=== PATIENT | female | born 2000 | race Caucasian/White ===

== ENCOUNTER 2023-07-05 16:38 | Emergency (ER) | payer OTHER, SELFPAY ==
[2023-07-05 16:41] VITALS: BP 133/84; PULSE 94; RESP 63; TEMP 39.5; O2SAT 97; BMI 29.5
[2023-07-05 16:58] LABS: Internal Control Within Normal Limits; Strep A Antigen Screen Negative
[2023-07-05] MEDS: IBUPROFEN 400 MG TABLET 800 MG PO (17:01)
[2023-07-05] MEDS: ACETAMINOPHEN 500 MG TABLET 1000 MG PO (17:01)
[2023-07-05 17:04] LABS: SARS-CoV-2 Ag NEGATIVE (NEGATIVE)
--- NOTE | 2023-07-05 17:15 | ED.URI1 ---
HPI - URI/Sore Throat General Chief Complaint: Upper Respiratory Infection Stated Complaint: FEVER, SORE THROAT Time Seen by Provider: 07/05/23 16:43 Source: patient History of Present Illness HPI Narrative: fever and sore throat since this morning. Uncertain about potential ill exposures. Took tylenol around 830am and nothing since. No vomiting or diarrhea. occasional cough. Achy Related Data Allergies Allergy/AdvReac Type Severity Reaction Status Date / Time No Known Drug Allergies Allergy Verified 07/05/23 16:41 PFSH PFSH Social History Smoking status: Current every day smoker Exam Narrative Exam Narrative: Nurses notes and vital signs reviewed and patient is not hypoxic. febrile - T 103.1F General: Well-appearing and in no apparent distress. Skin: Warm, dry, no pallor noted. No rash. Head: Normocephalic, atraumatic. Neck: Supple, non-tender. nno cervical lymphadenopathy. No meningismus Eye: Pupils are equal, round and EOMI. No scleral icterus. Ears, Nose, Mouth, and Throat: TM are clear, no nasal mucosal hypertrophy. Oral mucosa is moist, mild posterior oropharynx erythema, no exudate and uvula is mid-line Cardiovascular: Regular Rate and Rhythm without murmur, gallop or rub. Respiratory: No accessory muscle use or respiratory distress. Lungs are clear to auscultation, no wheezing, rales or rhonchi Musculoskeletal: normal ROM GI: Abdomen is soft, non-distended. Normal bowel sounds. No tenderness to palpation. No rebound, guarding, or rigidity noted. Neurological: A&O x4. No cranial nerve dysfunction observed. No truncal ataxia. Moves all extremities. Sensation intact. Psychiatric: Cooperative and interactive. Normal mood and affect. Constitutional Vital Signs, click to edit/add: Last Vital Signs Temp 103.1 F H 07/05/23 16:41 Pulse 94 H 07/05/23 16:41 Resp 63 H 07/05/23 16:41 BP 133/84 07/05/23 16:41 Pulse Ox 97 07/05/23 16:41 O2 Del Method Room Air 07/05/23 16:41 Course Vital Signs Vital signs: Vital Signs Temperature 103.1 F H 07/05/23 16:41 Pulse Rate 94 H 07/05/23 16:41 Respiratory Rate 63 H 09/02/23 16:41 Blood Pressure 133/84 07/05/23 16:41 Pulse Oximetry 97 07/05/23 16:41 Oxygen Delivery Method Room Air 07/05/23 16:41 Temperature 103.1 F H 07/05/23 16:41 Pulse Rate 94 H 07/05/23 16:41 Respiratory Rate 63 H 07/05/23 16:41 Blood Pressure 133/84 07/05/23 16:41 Pulse Oximetry 97 07/05/23 16:41 Oxygen Delivery Method Room Air 07/05/23 16:41 MDM - URI/Sore Throat MDM Narrative Medical decision making narrative: Covid and strep screen were negative. Strep screen with a platelet of the culture grows bacteria requiring antibiotics, they will be called in for the patient. it is very early in terms of onset of symptoms for the patient's test positive for occult blood. She may have this as we're seeing an increased incidence in the area. I told her to quarantine, wear a mask, take Tylenol and Motrin for any fever and achiness, encouraged her to increase her oral fluid intake and is trying to eat balanced nutrition. Patient advised to rest, stay at home, practice social distancing, take Motrin and Tylenol for pain and fever if not allergic, stay well hydrated with Gatorade or similar drinks if vomiting or eat as tolerated if not and take any meds as prescribed. Reviewed reasons to return including rapid increase in respiratory rate, shortness of breath, confusion, inability to keep down sips of swallowed liquids for more than 24 hours. Asked patient to encourage any ill contacts to stay home and practice similar advice. Lab Data Attestation: I reviewed the patient's lab results. Labs: Lab Results 07/05/23 Range/Units 16:44 SARS-CoV-2 (PCR) Negative (NEGATIVE) Streptococcus Screen Negative Discharge Plan Discharge Chief Complaint: Upper Respiratory Infection Clinical Impression: Upper respiratory infection, Pharyngitis, Acute febrile illness Patient Disposition: Home, Self-Care Time of Disposition Decision: 17:14 Instructions: Pharyngitis (ED), Fever in Adults (ED), Upper Respiratory Infection (ED) Stand Alone Forms: Portal Instructions Referrals: MARLIN MARISCAL [Primary Care Provider] - 1 week
[2023-07-06 14:10] LABS: SARS-CoV-2 NAA NOT DETECTED (NOT DETECTE)
== END 2023-07-05 17:21 | disposition home or self-care (01) ==
PROVIDERS: Emergency Provider Emergency Medicine; PCP Family Medicine
DX: J02.9 Acute pharyngitis, unspecified (principal); J06.9 Acute upper respiratory infection, unspecified; R50.9 Fever, unspecified; Z20.822 Contact with and (suspected) exposure to COVID-19; F17.210 Nicotine dependence, cigarettes, uncomplicated
CPT/HCPCS: 87070; 87635; 87811; 87880; 99283; U0003

== ENCOUNTER 2024-04-12 21:13 | Outpatient (REF) | payer SELFPAY ==
[2024-04-15 12:14] LABS: Age Gdln ACOG Testing Note (.); IGP, rfx Aptima HPV ASCU Note (.)
== END 2024-04-12 21:14 | disposition home or self-care (01) ==
LOC: LAB 21:13
PROVIDERS: PCP Family Medicine; Visit Provider Obstetrics & Gynecology
DX: Z01.419 Encounter for gynecological examination (general) (routine) without abnormal findings (principal)
CPT/HCPCS: 88175

== ENCOUNTER 2024-08-18 14:52 | Outpatient (OUT) | payer OTHER, SELFPAY ==
[2024-08-18 15:17] LABS: Basophils Percent Auto 0.6 % (0.2-2.0); Eosinophils Absolute Auto 0.1 10^3/uL (0.0-0.7); Eosinophils Percent Auto 1.2 % (0.9-7.0); Hematocrit 42.8 % (36.0-48.0); Hemoglobin 14.3 g/dL (12.0-16.0); Immature Granulocytes Abs Auto 0.01 10^3/uL (0.00-0.03); Immature Granulocytes Pct Auto 0.2 % (0.0-0.5); Lymphocytes Absolute Auto 2.4 10^3/uL (1.2-3.8); Mean Corpuscular HGB Conc 33.4 g/dL (29.9-35.2); Mean Corpuscular Hemoglobin 30.7 pg (26.7-34.0); Mean Corpuscular Volume 91.8 fL (81.0-99.0); Mean Platelet Volume 10.4 fL (9.5-13.5); Monocytes Absolute Auto 0.5 10^3/uL (0.3-0.8); Monocytes Percent Auto 7.8 % (1.7-12.0); Neutrophils Absolute Auto 3.5 10^3/uL (1.4-6.5); Neutrophils Percent Auto 54.2 % (43.0-75.0); Platelet Count 236 10^3/uL (150-450); Red Blood Count 4.66 10^6/uL (4.20-5.40); Red Cell Distribution Width 12.6 % (11.0-15.0); White Blood Count 6.5 10^3/uL (4.0-11.0)
[2024-08-18 15:38] LABS: Estimated Average Glucose 100 mg/dL; Glycohemoglobin A1C 5.1 % (4.5-6.2)
[2024-08-18 15:52] LABS: Thyroid Stimulating Hormone 1.253 uIU/mL (0.358-3.740)
[2024-08-18 15:54] LABS: HCG Quantitative <1 mIU/mL
[2024-08-18 16:05] LABS: Free T4 1.06 ng/dL (0.76-1.46)
[2024-08-20 04:08] LABS: FSH 5.3 mIU/mL (.); Luteinizing Hormone(LH) 9.3 mIU/mL (.)
[2024-08-26 00:07] LABS: DHEA, Serum 169 ng/dL (31-701)
== END 2024-08-18 14:53 | disposition home or self-care (01) ==
LOC: LAB 14:54
PROVIDERS: PCP Family Medicine; Visit Provider Obstetrics & Gynecology
DX: E28.2 Polycystic ovarian syndrome (principal); N92.6 Irregular menstruation, unspecified
CPT/HCPCS: 36415; 82626; 82627; 83001; 83002; 83036; 84439; 84443; 84702; 85025

== ENCOUNTER 2024-08-23 14:50 | Outpatient (OUT) | payer OTHER, SELFPAY ==
--- NOTE | 2024-08-23 14:54 | US_ITS ---
[address] [address] Patient Name: AMRIT ROTHMAN MRN: [id number] date: 2000 Sex: F Assigned Patient Location: [place] Current Patient Location: Accession/Order Number: [id number] Exam Date: 08/23/2024 15:00 Report Date: 08/24/2024 10:54 At the request of: CANDIDO CHADWICK Procedure: US pelvis w/ transvaginal EXAMINATION: US pelvis w/ transvaginal HISTORY: Polycystic Ovarian Syndrome E28.2 COMPARISON: No relevant comparison available. FINDINGS: Transabdominal and transvaginal images The uterus is normal in size, contour and echotexture measuring 8.6 x 3.2 x 5.4 cm per the uterus is anteverted. 3 mm area of anechoic echogenicity in the cervix likely nabothian cysts. Endometrium measures 7.8 mm, normal. Small amount of free fluid in the endometrial cavity The right ovary measures 5.6 x 2.8 x 3.5 cm. Normal color and Doppler flow. Multiple normal follicles The left ovary measures 4.0 x 2.5 x 2.6 cm. Normal color and Doppler flow. Multiple normal follicles No free fluid US/US pelvis w/ transvaginal IMPRESSION: Bilateral ovarian follicles, not meeting criteria for polycystic ovarian morphology Electronically authenticated by: NEHA HERRERA Date: 08/24/2024 10:54
--- OUTSIDE RECORDS SUMMARY | 2024-08-23 15:06 | XMS_ITS | CCD ---
Author Organization [facility]iniSyn[facility] Care Team Providers Care Drafter Electrical Name Role Phone DAVEY, DR ISAAC Primary Care Unavailable BERKLEY RODNEY Attending Unavailable BERKLEY RODNEY Admitting Unavailable BERKLEY RODNEY Consulting Unavailable DAVEY, DR ISAAC Primary Care Unavailable BERKLEY RODNEY Attending Unavailable BERKLEY RODNEY Admitting Unavailable BERKLEY RODNEY Consulting Unavailable DAVEY, DR ISAAC Primary Care Unavailable RENETTA CHILDS Admitting Unavailable RENETTA CHILDS Attending Unavailable LUZ MARIA, DR REY Consulting Unavailable DAVEY, DR ISAAC Primary Care Unavailable LUZ MARIA, DR REY Admitting Unavailable LUZ MARIA, DR REY Attending Unavailable DAVEY, DR ISAAC Primary Care Unavailable LUZ MARIA, DR REY Attending Unavailable LUZ MARIA, DR REY Admitting Unavailable LUZ MARIA, DR REY Consulting Unavailable LUZ MARIA, DR REY Attending Unavailable LUZ MARIA, DR REY Admitting Unavailable LUZ MARIA, DR REY Consulting Unavailable DAVEY, DR ISAAC Primary Care Unavailable LUZ MARIA, DR REY Attending Unavailable DAVEY, DR ISAAC Primary Care Unavailable LUZ MARIA, DR REY Admitting Unavailable LUZ MARIA, DR REY Consulting Unavailable LUZ MARIA, DR REY Attending Unavailable DAVEY, DR ISAAC Primary Care Unavailable LUZ MARIA, DR REY Admitting Unavailable LUZ MARIA, DR REY Consulting Unavailable ZIEBER, DR JORGE Burton Consulting Unavailable LUZ MARIA, DR REY Attending Unavailable DAVEY, DR ISAAC Primary Care Unavailable LUZ MARIA, DR REY Admitting Unavailable JAVIER, DR SOLOMON Consulting Unavailable LUZ MARIA, DR REY Consulting Unavailable LUZ MARIA, DR REY Attending Unavailable DAVEY, DR ISAAC Primary Care Unavailable LUZ MARIA, DR REY Admitting Unavailable LUZ MARIA, DR REY Consulting Unavailable JORGE SINGLETON Consulting Unavailable LUZ MARIA, DR REY Procedure Practitioner Unavailab suki AGUILAR, DR MARTÍNEZ Attending Unavailable JEFF, DR MARTÍNEZ Admitting Unavailable DR JUANPABLO MARISCAL Primary Care Unavailable JEFF, DR MARTÍNEZ Consulting Unavailable Hanane Britt Unavailable Juanpablo Mariscal MD Primary Care Provider CANDIDO LOERA Attending Unavailable CANDIDO LOERA Attending Unavailable Medications Current Medications Medication Drug Class(es) Dates Sig (Normalized) Sig (Original) amoxicillin 500 mg oral capsule (1 source) Penicillin-class Antibacterial Start: 11-23-2022 take 1 capsule by mouth every eight hours Amoxicillin 500 MG 1 capsule Orally three times a day for 10 day(s) Nov, Active dextromethorphan hydrobromide 15 mg / guaiFENesin 400 mg / pseudoephedrine hydrochloride 60 mg oral tablet (1 source) alpha-Adrenergic Agonist, Uncompetitive X-yjptvw-O-aspartat e Receptor Antagonist, Sigma-1 Agonist Start: 02-10-2024 take 4 tablets by mouth every twenty-four hours Pseudoephedrine- Dm-Guaifenesin (Capmist Dm) 60-15-400 mg tablet Active 1 TAB PO EVERY 4-6 HOURS February 10, 2024 12:00am do not exceed 4 doses per 24 hrs oseltamivir 75 mg oral capsule (1 source) Neuraminidase Inhibitor Start: 02-10-2024 take 1 capsule by mouth twice daily Oseltamivir (Tamiflu) 75 mg capsule Active 75 MG PO Twice daily 10 February 10, 2024 12:00am predniSONE 20 mg oral tablet (1 source) Start: 11-23-2022 take 1 tablet by mouth every twelve hours predniSONE 20 MG 1 tablet Orally 2 times a day for 5 day(s) Nov, Active Problems Active Problems Problem Classification Problem Date Documented Da te Episodic/Chronic E Codes: Natural/environment (1 source) Bitten by cat, initial encounter; Translations: [BITTEN BY CAT INITIAL ENCOUNTER] Onset: 08-06-2022 Episodic Menstrual disorders (2 sources) Irregular periods; Translations: [Irregular menstruation, unspecified] 08-18-2024 Chronic Open wounds of extremities (4 sources) Open bite of right forearm, initial encounter; Translations: [OPEN BITE RIGHT FOREARM INITIAL ENC] Onset: 07-26-2022 Episodic Other endocrine disorders (2 sources) Polycystic ovary syndrome; Translations: [Polycystic ovarian syndrome] 08-18-2024 Chronic Other upper respiratory infections (3 sources) Sore throat symptom; Translations: [Acute pharyngitis, unspecified] Episodic Skin and subcutaneous tissue infections (1 source) Cellulitis of right upper limb; Translations: [CELLULITIS OF RIGHT UPPER LIMB] Onset: 08-06-2022 Episodic Unclassified (1 source) CONTACT W/AND (SUSP) EXPOS COVID-19; Translations: [CONTACT W/AND (SUSP) EXPOS COVID-19] Onset: 12-25-2021 Past or Other Problems Problem Classification Problem Date Documented Da te Episodic/Chronic Abdominal pain (4 sources) Pelvic and perineal pain; Translations: [PELVIC AND PERINEAL PAIN] Onset: 02-28-2022 Episodic Cardiac dysrhythmias (4 sources) Tachycardia, unspecified; Translations: [TACHYCARDIA UNSPECIFIED] Onset: 11-15-2021 Episodic Diabetes mellitus without complication (4 sources) Other abnormal glucose; Translations: [OTHER ABNORMAL GLUCOSE] Onset: 09-14-2021 Episodic OB-related trauma to perineum and vulva (1 source) Second degree perineal laceration during delivery; Translations: [SECOND DEG PERINEAL LAC DUR DELIV] Onset: 12-25-2021 Episodic Other complications of (4 sources) Other specified related conditions, third trimester; Translations: [OTH SPEC PREG RELATED COND 3RD TRI] Onset: 12-12-2021 Episodic Other and delivery including normal (11 sources) Encounter for routine follow-up; Translations: [Encounter for supervision of normal , unspecified, third trimester] Onset: 11-27-2021 Episodic Other screening for suspected conditions (not mental disorders or infectious disease) (8 sources) Encounter for screening for diabetes mellitus; Translations: [Encounter for other specified screening] Onset: 08-08-2021 Episodic Residual codes; unclassified (1 source) 39 weeks gestation of ; Translations: [39 WEEKS GESTATION OF ] Onset: 12-25-2021 Episodic Residual codes; unclassified (1 source) 38 weeks gestation of ; Translations: [38 WEEKS GESTATION OF ] Onset: 12-17-2021 Episodic Spondylosis; intervertebral disc disorders; other back problems (1 source) Dorsalgia, unspecified; Translations: [DORSALGIA UNSPECIFIED] Onset: 12-17-2021 Episodic Results Test Name Value Interpretation Reference Range Facility ALL CBC WITH AUTO DIFFon BASOPHILS ABSOLUTE AUTO 0 [facility] Basophils/100 WBC (Bld) 0.6 % 0.2 - 2.0 % [facility] Eosinophils/100 WBC (Bld) 1.2 % 0.9 - 7.0 % [facility] Eryth[facility] distribution width (RBC) [Ratio] 12.6 % 11.0 - 15.0 % [facility] Hematocrit (Bld) [Volume fraction] 42.8 % 36.0 - 48.0 % [facility] Hemoglobin (Bld) [Mass/Vol] 14.3 g/dL 12.0 - 16.0 g/dL [facility] IMMATURE GRANULOCYTES ABS AUTO 0.01 [facility] Immature granulocytes/100 WBC (Bld) 0.2 % 0.0 - 0.5 % [facility] LYMPHOCYTES ABSOLUTE AUTO 2.4 [facility] Lymphocytes/100 WBC (Bld) 36 % 20.5 - 60.0 % [facility] MCH (RBC) [Entitic mass] 30.7 pg 26.7 - 34.0 pg [facility] MCHC (RBC) [Mass/Vol] 33.4 g/dL 29.9 - 35.2 g/dL [facility] MCV (RBC) [Entitic vol] 91.8 fL 81.0 - 99.0 fL [facility] MONOCYTES ABSOLUTE AUTO 0.5 [facility] Monocytes/100 WBC (Bld) 7.8 % 1.7 - 12.0 % [facility] NEUTROPHILS ABSOLUTE AUTO 3.5 [facility] Neutrophils/100 WBC (Bld) 54.2 % 43.0 - 75.0 % [facility] Platelet mean volume (Bld) [Entitic vol] 10.4 fL 9.5 - 13.5 fL [facility] EO # 0.1 [facility] PLT 236 [facility] RBC 4.66 [facility] WBC 6.5 [facility] No Panel InformationOrdered By: Kayla Bustillos on 02-10-2024 Quick Strep (POC) [facility] Quick Strepon 11-23-2022 S. pyogenes Org specific cx Ql (Throat) Positive [facility] [employer] Other [employer] Other US PELVIS TRANSVAGon 022 US PELVIS TRANSVAG EXAMINATION: US PELVIS TRANSVAG HISTORY: Pelvic and perineal pain , IUD insertion COMPARISON: No relevant comparison available. TECHNIQUE: Transabdominal and transvaginal sonographic examination. FINDINGS: UTERUS: Normal size and appearance. Uterus size: 8.0 x 3.6 x 6.1 cm ENDOMETRIUM: IUD within the lower uterine segment with distal tip adjacent or possibly slightly into the posterior wall. Normal thickness and echogenicity of the endometrium. Endometrial thickness: 5 mm RIGHT OVARY: Normal size and appearance. Duplex Doppler demonstrates normal waveform and flow; resistive index 0.5. Ovary size: 3.3 x 1.8 x 4.0 cm LEFT OVARY: Normal size and appearance. Duplex Doppler demonstrates normal waveform and flow; resistive index 0.7. Ovary size: 4.2 x 1.7 x 2.4 cm CUL-DE-SAC: Unremarkable. No significant free fluid. BLADDER: Unremarkable. OTHER: None. IMPRESSION: 1. IUD within lower uterine segment with distal tip possibly deep to endometrium. Dr. Loera was notified of findings by the rotor blade installer at time of imaging. IUD has been removed. Electronically authenticated by: JORGE ARIZA Date: 2022-02-28 12:57 Normal [facility] CBC AUTO DIFFon 12-21-2021 BASO # 0.0 103/ul Normal 0.0-0.1 [facility] Comment on above: Performed By: #### T NS #### [facility] [address] [place] [address] Dr. Jose Man Basophils/100 WBC (Bld) 0.1 % Critically low 0.2-2.0 [facility] Comment on above: Performed By: #### T NS #### [facility] [address] [place] [address] Dr. Jose Man EO # 0.0 103/ul Normal 0.0-0.7 [facility] Comment on above: Performed By: #### T NS #### [facility] [address] [place] [address] Dr. Jose Man Eosinophils/100 WBC (Bld) 0.2 % Critically low 0.9-7.0 [facility] Comment on above: Performed By: #### T NS #### [facility] [address] [place] [address] Dr. Jose Man Erythrocyte distribution width (RBC) [Ratio] 13.2 % Normal 11.0-15.0 [facility] Comment on above: Performed By: #### T NS #### [facility] [address] [place] [address] Dr. Jose Man Hematocrit (Bld) [Volume fraction] 35.5 % Critically low 36.0-48.0 [facility] Comment on above: Performed By: #### T NS #### [facility] [address] [place] [address] Dr. Jose Man Hemoglobin (Bld) [Mass/Vol] 11.9 g/dL Critically low 12.0-16.0 [facility] Comment on above: Performed By: #### T NS #### [facility] [address] [place] [address] Dr. Jose Man IG # 0.06 10e3/ul Critically high 0.00-0.03 [facility] Comment on above: Performed By: #### T NS #### [facility] [address] [place] [address] Dr. Jose Man IG % 0.5 % Normal 0.0-0.5 [facility] Comment on above: Performed By: #### T NS #### [facility] [address] [place] [address] Dr. Jose Man LYMPH # 1.9 103/ul Normal 1.2-3.8 [facility] Comment on above: Performed By: #### T NS #### [facility] [address] [place] [address] Dr. Jose Man Lymphocytes/100 WBC (Bld) 15.4 % Critically low 20.5-60.0 [facility] Comment on above: Performed By: #### T NS #### [facility] [address] [place] [address] Dr. Jose Man MANUAL DIFF REQ NO Normal [facility] Comment on above: Performed By: #### T NS #### [facility] [address] [place] [address] Dr. Jose Man MCH (RBC) [Entitic mass] 30.7 pg Normal 26.7-34.0 [facility] Comment on above: Performed By: #### T NS #### [facility] [address] [place] [address] Dr. Jose Man MCHC (RBC) [Mass/Vol] 33.5 g/dL Normal 29.9-35.2 [facility] Comment on above: Performed By: #### T NS #### [facility] [address] [place] [address] Dr. Jose Man MCV (RBC) [Entitic vol] 91.7 fL Normal 81.0-99.0 [facility] Comment on above: Performed By: #### T NS #### [facility] [address] [place] [address] Dr. Jose Man MONO # 1.1 103/ul Critically high 0.3-0.8 [facility] Comment on above: Performed By: #### T NS #### [facility] [address] [place] [address] Dr. Jose Man Monocytes/100 WBC (Bld) 8.5 % Normal 1.7-12.0 [facility] Comment on above: Performed By: #### T NS #### [facility] [address] [place] [address] Dr. Jose Man NEUT # 9.3 103/ul Critically high 1.4-6.5 [facility] Comment on above: Performed By: #### T NS #### [facility] [address] [place] [address] Dr. Jose Man Neutrophils/100 WBC (Bld) 75.3 % Critically high 43.0-75.0 [facility] Comment on above: Performed By: #### T NS #### [facility] [address] [place] [address] Dr. Jose Man Platelet mean volume (Bld) [Entitic vol] 11.0 fL Normal 9.5-13.5 [facility] Comment on above: Performed By: #### T NS #### [facility] [address] [place] [address] Dr. Jose Man PLT 182 103/ul Normal 150-450 [facility] Comment on above: Performed By: #### T NS #### [facility] [address] [place] [address] Dr. Jose Man RBC 3.87 106/ul Critically low 4.20-5.40 [facility] Comment on above: Performed By: #### T NS #### [facility] [address] [address] [address] Jose Man WBC 12.3 103/ul Critically high 4.0-11.0 [facility] Comment on above: Performed By: #### T NS #### [facility] [address] [place] [address] Dr. Jose Man ASYMPTOMATIC COVID-19 ANTIGE Non 12-19-2021 EUA Statement SEE BELOW Normal [facility] Comment on above: Result Comment: This test has not been FDA cleared or approved, but has been authorized by the FDA under an Emergency Use Authorization (EUA) for use by authorized laboratories certified under CLIA that meet the requirements to perform moderate or high complexity testing. This test has been authorized only for the detection of proteins from SARS-CoV-2, not for any other viruses or pathogens. The emergency use of this test is authorized for the duration of the declaration that circumstances exist justifying the authorization of emergency use of in vitro diagnostic tests for detection and/or diagnosis of Covid-19 under section 564(b)(1) of the Act, 21 U.S.C. 360bbb-3(b)(1), unless the declaration is terminated or authorization is revoked sooner. Performed By: #### C VDAGA #### [facility] [address] [place] [address] Dr. Jose Man SARS-CoV-2 (COVID-19) RNA MELISSA+probe Ql (Unsp spec) Negative Normal NEGATIVE [facility] Comment on above: Result Comment: Nega tive results are presumptive. They do not preclude infection and should not be used as the sole basis for treatment decisions. Additional confirmatory testing by a molecular method should be considered. Performed By: #### C VDAGA #### [facility] [address] [place] [address] Dr. Jose Man CBC AUTO DIFFon 12-19-2021 BASO # 0.0 103/ul Normal 0.0-0.1 [facility] Comment on above: Performed By: #### T NS #### [facility] [address] [place] [address] Dr. Jose Man Basophils/100 WBC (Bld) 0.2 % Normal 0.2-2.0 [facility] Comment on above: Performed By: #### T NS #### [facility] [address] [place] [address] Dr. Jose Man EO # 0.0 103/ul Normal 0.0-0.7 [facility] Comment on above: Performed By: #### T NS #### [facility] [address] [place] [address] Dr. Jose Man Eosinophils/100 WBC (Bld) 0.3 % Critically low 0.9-7.0 [facility] Comment on above: Performed By: #### T NS #### [facility] [address] [place] [address] Dr. Jose Man Erythrocyte distribution width (RBC) [Ratio] 12.9 % Normal 11.0-15.0 [facility] Comment on above: Performed By: #### T NS #### [facility] [address] [place] [address] Dr. Jose Man Hematocrit (Bld) [Volume fraction] 39.1 % Normal 36.0-48.0 [facility] Comment on above: Performed By: #### T NS #### [facility] [address] [place] [address] Dr. Jose Man Hemoglobin (Bld) [Mass/Vol] 13.2 g/dL Normal 12.0-16.0 [facility] Comment on above: Performed By: #### T NS #### [facility] [address] [address] [address] Jose Man IG # 0.04 10e3/ul Critically high 0.00-0.03 [facility] Comment on above: Performed By: #### T NS #### [facility] [address] [address] [address] Jose Man IG % 0.4 % Normal 0.0-0.5 [facility] Comment on above: Performed By: #### T NS #### [facility] [address] [place] [address] Dr. Jose Man LYMPH # 1.6 103/ul Normal 1.2-3.8 [facility] Comment on above: Performed By: #### T NS #### [facility] [address] [place] [address] Dr. Jose Man Lymphocytes/100 WBC (Bld) 16.7 % Critically low 20.5-60.0 [facility] Comment on above: Performed By: #### T NS #### [facility] [address] [place] [address] Dr. Jose Man MANUAL DIFF REQ NO Normal [facility] Comment on above: Performed By: #### T NS #### [facility] [address] [place] [address] Dr. Jose Man MCH (RBC) [Entitic mass] 30.3 pg Normal 26.7-34.0 [facility] Comment on above: Performed By: #### T NS #### [facility] [address] [place] [address] Dr. Jose Man MCHC (RBC) [Mass/Vol] 33.8 g/dL Normal 29.9-35.2 [facility] Comment on above: Performed By: #### T NS #### [facility] [address] [place] [address] Dr. Jose Man MCV (RBC) [Entitic vol] 89.7 fL Normal 81.0-99.0 [facility] Comment on above: Performed By: #### T NS #### [facility] [address] [place], [place] [id number] Dr. Jose Man MONO # 0.9 103/ul Critically high 0.3-0.8 [facility] Comment on above: Performed By: #### T NS #### [facility] [address] [place] [address] Dr. Jose Man Monocytes/100 WBC (Bld) 8.7 % Normal 1.7-12.0 [facility] Comment on above: Performed By: #### T NS #### [facility] [address] [place] [address] Dr. Jose Man NEUT # 7.2 103/ul Critically high 1.4-6.5 [facility] Comment on above: Performed By: #### T NS #### [facility] [address] [place] [address] Dr. Jose Man Neutrophils/100 WBC (Bld) 73.7 % Normal 43.0-75.0 [facility] Comment on above: Performed By: #### T NS #### [facility] [address] [place] [address] Dr. Jose Man Platelet mean volume (Bld) [Entitic vol] 11.8 fL Normal 9.5-13.5 [facility] Comment on above: Performed By: #### T NS #### [facility] [address] [place] [address] Dr. Jose Man PLT 215 103/ul Normal 150-450 [facility] Comment on above: Performed By: #### T NS #### [facility] [address] [place] [address] Dr. Jose Man RBC 4.36 106/ul Normal 4.20-5.40 [facility] Comment on above: Performed By: #### T NS #### [facility] [address] [place] [address] Dr. Jose Man WBC 9.8 103/ul Normal 4.0-11.0 [facility] Comment on above: Performed By: #### T NS #### [facility] [address] [place] [address] Dr. Jose Man DRUG SCREEN RAPID (URINE)on 12-19-2021 AMP Negative Normal NEGATIVE [facility] Comment on above: Performed By: #### D RUGRPD #### [facility] [address] [place] [address] Dr. Jose Man BAR Negative Normal NEGATIVE [facility] Comment on above: Performed By: #### D RUGRPD #### [facility] [address] [place] [address] Dr. Jose Man BUP Negative Normal NEGATIVE [facility] Comment on above: Performed By: #### D RUGRPD #### [facility] [address] [place] [address] Dr. Jose Man BZO Negative Normal NEGATIVE [facility] Comment on above: Performed By: #### D RUGRPD #### [facility] [address] [place] [address] Dr. Jose Man TANYA Negative Normal NEGATIVE [facility] Comment on above: Performed By: #### D RUGRPD #### [facility] [address] [place] [address] Dr. Jose Man CUT-OFFS SEE BELOW Normal [facility] Comment on above: Result Comment: AMP (Amphetamine): 500ng/mL, BAR (Barbituates): 200 ng/mL, BZO (Benzodiazepines): 150 ng/mL, BUP (Buprenorphine): 10 ng/mL, TANYA (Cocaine): 150 ng/mL, mAMP (Methamphetamine): 500 ng/mL, MTD (Methadone): 200 ng/mL, OPI (Opiates): 100 ng/mL, OXY (Oxycodone): 100 ng/mL, PCP (Phencyclidine): 25 ng/mL, PPX (Propoxyphene): 300 ng/mL, THC (Cannabinoids): 50 ng/mL, TCA (Trycyclic Antidepressants): 300 ng/mL Performed By: #### D RUGRPD #### [facility] [address] [place] [address] Dr. Jose Man DRUG CUT HEADER DRUG CLASS TEST SYSTEM CUT-OFF CONCENTRATIONS ARE FOLLOWS: Normal [facility] Comment on above: Performed By: #### D RUGRPD #### [facility] [address] [place] [address] Dr. Jose Man mAMP Negative Normal NEGATIVE [facility] Comment on above: Performed By: #### D RUGRPD #### [facility] Laboratory [address] [address] [address] Jose Man MTD Negative Normal NEGATIVE [facility] Comment on above: Performed By: #### D RUGRPD #### [facility] Laboratory [address] [place] [address] Dr. Jose Man OPI Negative Normal NEGATIVE [facility] Comment on above: Performed By: #### D RUGRPD #### [facility] Laboratory [address] [place] [address] Dr. Jose Man OXY Negative Normal NEGATIVE [facility] Comment on above: Performed By: #### D RUGRPD #### [facility] Laboratory [address] [place] [address] Dr. Jose Man PCP Negative Normal NEGATIVE [facility] Comment on above: Performed By: #### D RUGRPD #### [facility] Laboratory [address] [place] [address] Dr. Jose Man PPX Negative Normal NEGATIVE [facility] Comment on above: Performed By: #### D RUGRPD #### [facility] Laboratory [address] [place] [address] Dr. Jose Man TCA Negative Normal NEGATIVE [facility] Comment on above: Performed By: #### D RUGRPD #### [facility] Laboratory [address] [place] [address] Dr. Jose Man THC Negative Normal NEGATIVE [facility] Comment on above: Performed By: #### D RUGRPD #### [facility] Laboratory [address] [place] [address] Dr. Jose Man TYPE AND SCREENon 12-19-2021 TYPE AND SCREEN Negative Normal [facility] Comment on above: Performed By: #### T NS #### [facility] Laboratory [address] [place] [address] Dr. Jose Man UA (CLEAN/CATCH) PEDIATRIC PSYCHOLOGIST/MICRO I F IND.on 12-12-2021 Bilirubin Ql (U) Negative Normal NEGATIVE [facility] Comment on above: Performed By: #### U MICRO, UACSIND #### [facility] Laboratory [address] [address] [address] Jose Man Clarity (U) CLEAR Normal CLEAR [facility] Comment on above: Performed By: #### U MICRO, UACSIND #### [facility] Laboratory [address] [address] [address] Jose Man Color (U) LT. YELLOW Normal YELLOW [facility] Comment on above: Performed By: #### U MICRO, UACSIND #### [facility] Laboratory [address] [address] [address] Jose Man Glucose Ql (U) Negative Normal NEGATIVE [facility] Comment on above: Performed By: #### U MICRO, UACSIND #### [facility] Laboratory [address] [place] [address] Dr. Jose Man Hemoglobin Ql (U) TRACE-LYSED Abnormal NEGATIVE [facility] Comment on above: Performed By: #### U MICRO, UACSIND #### [facility] Laboratory [address] [place] [address] Dr. Jose Man Ketones Ql (U) Negative Normal NEGATIVE [facility] Comment on above: Performed By: #### U MICRO, UACSIND #### [facility] Laboratory [address] [place] [address] Dr. Jose Man LEUKOCYTES Negative Normal NEGATIVE [facility] Comment on above: Performed By: #### U MICRO, UACSIND #### [facility] Laboratory [address] [address] [address] Jose Man Nitrite Ql (U) Negative Normal NEGATIVE [facility] Comment on above: Performed By: #### U MICRO, UACSIND #### [facility] Laboratory [address] [place] [address] Dr. Jose Man pH (U) 6.0 [pH] Normal 5-9 [facility] Comment on above: Performed By: #### U MICRO, UACSIND #### [facility] Laboratory [address] [place] [address] Dr. Jose Man SPEC GRAVITY 1.010 Normal 1.005-<=1.025 [facility] Comment on above: Performed By: #### U MICRO, UACSIND #### [facility] Laboratory [address] [place] [address] Dr. Jose Man UA PROTEIN Negative Normal NEGATIVE/ TRACE [facility] Comment on above: Performed By: #### U MICRO, UACSIND #### [facility] Laboratory [address] [place] [address] Dr. Jose Man UR MICRO IND INDICATED Normal [facility] Comment on above: Performed By: #### U MICRO, UACSIND #### [facility] Laboratory [address] [place] [address] Dr. Jose Man Urobilinogen Qn (U) 1.0 {Florentin'U}/dL Normal 0.2 - 1. 0 [facility] Comment on above: Performed By: #### U MICRO, UACSIND #### [facility] Laboratory [address] [place] [address] Dr. Jose Man URINE MICROSCOPIC ONLYon BACTERIA NONE SEEN Normal NONE SEEN [facility] Comment on above: Performed By: #### U MICRO, UACSIND #### [facility] Laboratory [address] [place] [address] Dr. Jose Man Bacteria identified Cx Nom (U) NOT INDICATED Normal [facility] Comment on above: Performed By: #### U MICRO, UACSIND #### [facility] Laboratory [address] [place] [address] Dr. Jose Man CAST NONE SEEN Normal NONE SEEN [facility] Comment on above: Performed By: #### U MICRO, UACSIND #### [facility] Laboratory [address] [place] [address] Dr. Jose Man Crystals LM Nom (Urine sed) NONE SEEN Normal NONE SEEN [facility] Comment on above: Performed By: #### U MICRO, UACSIND #### [facility] Laboratory [address] [place] [address] Dr. Jose Man Epithelial cells LM Ql (Urine sed) FEW Abnormal NONE SEEN /RARE [facility] Comment on above: Performed By: #### U MICRO, UACSIND #### [facility] Laboratory [address] [address] [address] Jose Man MUCOUS NONE SEEN Normal NONE SEEN [facility] Comment on above: Performed By: #### U MICRO, UACSIND #### [facility] Laboratory [address] [address] [address] Jose Man RBC 0-2 Normal 0-2 [facility] Comment on above: Performed By: #### U MICRO, UACSIND #### [facility] Laboratory [address] [address] [address] Jose Man WBC NONE SEEN Normal NONE SEEN [facility] Comment on above: Performed By: #### U MICRO, UACSIND #### [facility] Laboratory [address] [place] [address] Dr. Jose Man GROUP B STREP CULTUREon 11-04 S. agalactiae Ag Ql (Unsp spec) Culture Observations: NEGATIVE FOR GROUP B STREPTOCOCCUS. Normal [facility] Comment on above: Performed By: #### G BSCX #### [facility] Laboratory [address] [place] [address] Dr. Jose Man GTT 3 HR PREGon 09-14-2021 Glucose [Mass/Vol] 80 mg/dL Normal 74-106 [facility] Comment on above: Performed By: #### G TT3P #### [facility] Laboratory [address] [place] [address] Dr. Jose Man Glucose [Mass/Vol] 163 mg/dL Normal [facility] Comment on above: Performed By: #### G TT3P #### [facility] Laboratory [address] [place] [address] Dr. Jose Man Glucose [Mass/Vol] 133 mg/dL Normal [facility] Comment on above: Performed By: #### G TT3P #### [facility] Laboratory [address] [place] [address] Dr. Jose Man Glucose [Mass/Vol] 84 mg/dL Normal [facility] Comment on above: Performed By: #### G TT3P #### [facility] Laboratory [address] [place] [address] Dr. Jose Mna GLUCOSE - 1HRon 09-07-2021 Glucose [Mass/Vol] 150 mg/dL Critically high 74-106 [facility] Comment on above: Performed By: #### G LU1HR #### [facility] Laboratory [address] [address] [address] Jose Man HEMOGRAM AND PLATELon 2020 Hematocrit (Bld) [Volume fraction] 37.1 % Normal 36.0-48.0 [facility] Comment on above: Performed By: #### H H #### [facility] Laboratory [address] [address] [address] Jose Man Hemoglobin (Bld) [Mass/Vol] 12.3 g/dL Normal 12.0-16.0 [facility] Comment on above: Performed By: #### H H #### [facility] Laboratory [address] [place] [address] Dr. Jose Man MCH (RBC) [Entitic mass] 31.5 pg Normal 26.7-34.0 [facility] Comment on above: Performed By: #### H H #### [facility] Laboratory [address] [address] [address] Jose Man MCHC (RBC) [Mass/Vol] 33.2 g/dL Normal 29.9-35.2 [facility] Comment on above: Performed By: #### H H #### [facility] Laboratory [address] [address] [address] Jose Man MCV (RBC) [Entitic vol] 94.9 fL Normal 81.0-99.0 [facility] Comment on above: Performed By: #### H H #### [facility] Laboratory [address] [address] [address] Jsoe Man PLT 202 103/ul Normal 150-450 [facility] Comment on above: Performed By: #### H H #### [facility] Laboratory [address] [address] [address] Jose Man RBC 3.91 106/ul Critically low 4.20-5.40 [facility] [place] [facility] Comment on above: Performed By: #### H H #### [facility] Laboratory [address], [place] [address] Dr. Jose Man WBC 7.6 103/ul Normal 4.0-11.0 [facility] Comment on above: Performed By: #### H H #### [facility] Laboratory [address], [place] [address] Dr. Jose Man US PREG ANATOMY SINGLEon US PREG ANATOMY SINGLE EXAMINATION: US PREG ANATOMY SINGLE HISTORY: anatomy study COMPARISON: No relevant comparison available. TECHNIQUE: Transabdominal sonographic examination was performed for obstetrical and evaluation. FINDINGS: Number: 1 Heart Rate: Variable ranging from 113 to 145 bpm Amniotic Fluid Volume: Subjectively normal position: Transverse presentation, variable lie Placental Location: Posterior, grade 1. Placental edge 2.1 cm from the cervical os. Areas of anechoic echogenicity in the placenta, venous lakes are favored Cervix Length: 5.3 cm, closed Normal structures: Cerebellum. Choroid plexus. Cisterna magna. Lateral cerebral ventricles. Orbits. Midline falx. Hard palate. 4-chamber heart. RVOT. LVOT. Stomach. Kidneys. Bladder. Umbilical cord insertion into abdomen. 3 vessel cord. Cervical spine. Thoracic spine. Lumbar spine. Sacral spine. Right upper extremity. Left upper extremity. Right lower extremity. Left lower extremity. Suboptimally seen: None. Abnormalities/Othe r: Echogenic cardiac focus BIOMETRY: BPD: 4.5 cm 19 weeks 5 days HC: 17.2 cm 19 weeks 5 days AC: 14.8 cm 20 weeks 0 days FL: 3.0 cm 19 weeks 2 days EFW:0.254845; FL/AC: 0.700105 FL/BPD: 0.062656 HC/AC: 1.715892 GESTATIONAL AGE: Age by EDC: 20 weeks 1 day IVORY by EDC: 12/25/2021 Age by current US: 19 weeks 4 days IVORY by current US: 12/29/2021 IMPRESSION: Echogenic cardiac focus Low lying placenta, 2.1 cm from the cervical os Variable heart rate ranging from 113 to 145 bpm *Reference: [employer] Practice Guideline for the performance of Obstetric Ultrasound Examinations, August 03, 2007. Electronically authenticated by: NEHA HERRERA Date: 2021-08-08 09:12 Normal [facility] Vital Signs Date Time Vital Sign Value Performing Clinician Facility 08-18-2024 13:53-0400 Body mass index (BMI) [Ratio] 34.47 kg/m2 Candido Luz Maria DO Work Phone: [facility] 08-18-2024 13:53-0400 Body weight 105.87 kg Candido Luz Maria DO Work Phone: [facility] 08-18-2024 13:53-0400 Diastolic blood pressure 70 mm[Hg] Candido Luz Maria DO Work Phone: [facility] 08-18-2024 13:53-0400 Systolic blood pressure 118 mm[Hg] Candido Luz Maria DO Work Phone: [facility] 02-10-2024 10:47-0400 Body height 176.53 cm [facility] 02-10-2024 10:47-0400 Body mass index (BMI) [Ratio] 31.4 kg/m2 [facility] 02-10-2024 10:47-0400 Body temperature 97.9 [degF] [facility] 02-10-2024 10:47-0400 Body weight 98.14 kg [facility] 02-10-2024 10:47-0400 Heart rate 95 /min [facility] 02-10-2024 10:47-0400 Respiratory rate 18 /min [facility] 02-10-2024 10:47-0400 SaO2% (BldA) [Mass fraction] 99 % [facility] 11-23-2022 11:15-0500 Body height 176.53 cm Hanane Britt Other [facility] Other 11-23-2022 11:15-0500 Body mass index (BMI) [Ratio] 27.65 kg/m2 Hanane Britt Other [facility] [employer] Other 11-23-2022 11:15-0500 Body temperature 97.9 [degF] Hanane Britt Other [facility] [employer] Other 11-23-2022 11:15-0500 Body weight 86.18 kg Hanane Britt Other [facility] [employer] Other 11-23-2022 11:15-0500 Diastolic blood pressure 72 mm[Hg] Hanane Stoutmond Other [facility] [employer] Other 11-23-2022 11:15-0500 Respiratory rate 16 /min Hanane Britt Other [facility] [employer] Other 11-23-2022 11:15-0500 SaO2% (BldA) [Mass fraction] 98 % Hanane Britt Other [facility] [employer] Other 11-23-2022 11:15-0500 Systolic blood pressure 125 mm[Hg] Hanane Britt Other [facility] [employer] Other Encounters Encounter Date Encounter Type Care Provider Facility Start: 08-18-2024 End: 08-18-2024 Bamboo flowsheet Candido Luz Maria DO Work Phone: [facility] Start: 08-18-2024 End: 08-18-2024 Bamboo flowsheet Candido Luz Maria DO Work Phone: [facility] Start: 08-18-2024 End: 08-18-2024 Clinisync Result Encounter Generic External Data Provider [facility] Unsolicited Start: 08-18-2024 End: 08-18-2024 Office outpatient visit 15 minutes Candido Luz Maria DO Work Phone: [facility] Comment on above: Irregular periods/me nstrual cycles; PCOS (polycystic ovarian syndrome) Start: 08-18-2024 End: 08-18-2024 ambulatory CANDIDO LUZ MARIA Not Available Start: 04-12-2024 End: 04-12-2024 ambulatory CANDIDO LUZ MARIA Not Available Start: 02-10-2024 End: 02-10-2024 ambulatory [facility] Work Phone: Start: 02-10-2024 End: 02-10-2024 Patient encounter procedure [facility] Work Phone: Start: 11-23-2022 End: 11-23-2022 ambulatory Hanane Britt Other [facility] [employer] Other Start: 11-23-2022 Office outpatient vi sit 15 minutes Hanane Britt [facility] Start: 07-26-2022 End: 07-26-[address] JUANPABLO MARISCAL Facility:[facility] Start: 07-25-2022 End: 07-25-[address] JUANPABLO MARISCAL Facility:[facility] Start: 02-28-2022 End: 03-01-[address] CANDIDO LOERA Facility:[facility] Start: 12-25-2021 End: 12-25-[address] JUANPABLO MARISCAL Facility:[facility] Start: 12-19-2021 End: 12-22-2021 Evaluation and management of inpatient DR CANDIDO LOERA Facility:[facility] Start: 12-12-2021 End: 12-13-[address] MAURICIO AGUILAR Facility:[facility] Start: 11-27-2021 End: 11-27-[address] CANDIDO LOERA Facility:[facility] Start: 11-15-2021 End: 11-16-[address] CANDIDO LOERA Facility:[facility] Start: 09-14-2021 End: 09-15-[address] JUANPABLO MARISCAL Facility:[facility] Start: 09-07-2021 End: 09-08-[address] CANDIDO LOERA Facility:[facility] Start: 08-08-2021 End: 08-09-[address] CANDIDO LOERA Facility:[facility] Procedures Date Procedure Procedure Detail Performing Clinician Start: 08-18-2024 ALL CBC WITH AUTO DIFF Candido Loera DO Work Phone: Start: 02-10-2024 Quick Strep (POC) Start: 12-20-2021 Delivery of Products of Conception, External Approach DR JUANPABLO MARISCAL Start: 12-20-2021 Drainage of Amniotic Fluid, Therapeutic from Products of Conception, Via Natural or Artificial Opening DR JUANPABLO MARISCAL Start: 12-20-2021 Repair Perineum Musc le, Open Approach DR JUANPABLO MARISCAL Start: 12-19-2021 Introduction of Othe r Hormone into Peripheral Vein, Percutaneous Approach DR JUANPABLO MARISCAL Plan of Treatment Date Care Activity Detail Author Start: 04-19-2025 End: 04-19-2025 Patient encounter procedure 04/19/2025 10:00 AM EDT Office Visit [facility] [address] [place] [id number] Candido Loera, [address] [place] [address] [facility] Start: 08-18-2024 End: 08-18-2025 DHEA DHEA Lab Routine PCOS (polycystic ovarian syndrome) Expected: 08/18/2024 (Approximate), Expires: 08/18/2025 [facility] Comment on above: Expected: 08/18/2024 (Approximate), Expires: 08/18/2025 Start: 08-18-2024 End: 08-18-2025 US for US PELVIS-TRANSVAG IF INDICATED Imaging Routine PCOS (polycystic ovarian syndrome) Expected: 08/18/2024 (Approximate), Expires: 08/18/2025 [facility] Comment on above: Expected: 08/18/2024 (Approximate), Expires: 08/18/2025 Start: 08-18-2024 End: 08-18-2024 Patient encounter procedure 08/18/2024 1:40 PM EDT Office Visit [facility] [address] [place] [id number] Candido Loera, DO [address] [place] [address] Arrived [facility] Comment on above: Arrived Start: 07-04-2024 Influenza vaccination Influenza Vacc ine (#1) [facility] CBC W Auto Different ial panel - Blood CBC and differential Lab Routine PCOS (polycystic ovarian syndrome) Ordered: 08/18/2024 [facility] Comment on above: Ordered: 08/18/2024 DHEA-sulfate DHEA-sulfate Lab Routine PCOS (polycystic ovarian syndrome) Ordered: 08/18/2024 [facility] Comment on above: Ordered: 08/18/2024 Follicle stimulating hormone Follicle stimulating hormone Lab Routine PCOS (polycystic ovarian syndrome) Ordered: 08/18/2024 [facility] Comment on above: Ordered: 08/18/2024 hCG, quantitative, hCG, quantitative, Lab Routine PCOS (polycystic ovarian syndrome) Ordered: 08/18/2024 [facility] Work Phone: Comment on above: Ordered: 08/18/2024 Hemoglobin A1c/Hemoglobin.total in Blood Hemoglobin A1c Lab Routine Irregular periods/menstrual cycles Ordered: 08/18/2024 [facility] Comment on above: Ordered: 08/18/2024 Luteinizing hormone Luteinizing hormone Lab Routine PCOS (polycystic ovarian syndrome) Ordered: 08/18/2024 [facility] Comment on above: Ordered: 08/18/2024 Thyrotropin [Units/volume] in Serum or Plasma TSH Lab Routine PCOS (polycystic ovarian syndrome) Ordered: 08/18/2024 [facility] Comment on above: Ordered: 08/18/2024 Thyroxine (T4) free [Mass/volume] in Serum or Plasma T4, free Lab Routine PCOS (polycystic ovarian syndrome) Ordered: 08/18/2024 [facility] Comment on above: Ordered: 08/18/2024 Immunizations Immunization Date Immunization Notes Care Provider Jame momin 07-24-2022 tetanus toxoid, redu almaz diphtheria toxoid, and acellular pertussis vaccine, adsorbed Hanane Lorenza Other [facility] Payers Date Payer Category Payer Private Health Insurance [employer] [id number] 2002 Unknown [id number]. 593 2002 Unknown [id number] [id number]. 593 2002 Unknown [id number] 2.16.840.1.067219.3.579.2. 593 2002 Unknown [id number] 2.16.840.1.099161.3.579.2. 593 2002 Unknown [id number] 2.16.840.1.122513.3.579.2. 593 2002 Unknown [id number] [id number]. 593 2002 Unknown [id number] [id number]. 593 2002 Unknown [id number] 2.16.840.1.145390.3.579.2. 593 2002 Unknown [id number] 2.16.840.1.605392.3.579.2. 593 2002 Unknown [id number] [id number]. 593 2002 Unknown [id number] 2.16.840.1.083080.3.579.2. 593 2002 Unknown [id number] 2.16.840.1.752063.3.579.2. 1259 2002 Unknown [id number] [id number]. 1259 1959 Unknown [id number] 1959 Unknown [id number] Social History Date Type Detail Facility Sex Assigned At [employer] Other Start: 02-10-2024 Tobacco smoking status NHIS Never smoked tobacco (finding) [facility] Start: 2002 Sex Assigned At Female F [facility] Tobacco smoking status NHIS Tobacco smoking consumption unknown [facility] Start: 2002 Sex assigned at Not on file [facility] History of Present illness Narrative 08-18-2024 Colette SyANN - 08/18/2024 1:40 PM EDT Note Date & Type Note Facility 08-18-2024 History of Presen t illness Narrative Reason for Appointment: Patient ID: Melia Putnam is a 24 y.o. female who presents for Menstrual Problem Patient presents today for Acute Visit. MEDICATIONS No current outpatient medications ALLERGIES No Known Allergies PROBLEMS Active Ambulatory Problems Diagnosis Date Noted No Active Ambulatory Problems Resolved Ambulatory Problems Diagnosis Date Noted No Resolved Ambulatory Problems No Additional Past Medical History HISTORY PAST MEDICAL HISTORY SOCIAL HISTORY History reviewed. No pertinent past medical history. Social History Tobacco Use Smoking status: Not on file Smokeless tobacco: Not on file Substance Use Topics Alcohol use: Not on file Drug use: Not on file FAMILY HISTORY No family history on file. SURGICAL HISTORY History reviewed. No pertinent surgical history. REVIEW OF SYSTEMS Review of Systems: Review of Systems Constitutional: Negative. HENT: Negative. Eyes: Negative. Respiratory: Negative. Cardiovascular: Negative. Gastrointestinal: Negative. Genitourinary: Positive for menstrual problem. Musculoskeletal: Negative. Skin: Negative. Neurological: Negative. All other systems reviewed and are negative. Hematological: Negative. Endocrine: Negative. Allergic/Immunologic: Negative. OBJECTIVE Objective: Physical Exam Constitutional: Appearance: Normal appearance. She is well-developed. Cardiovascular: Rate and Rhythm: Normal rate and regular rhythm. Pulmonary: Effort: Pulmonary effort is normal. Breath sounds: Normal breath sounds. Abdominal: General: Bowel sounds are normal. There is no distension. Palpations: Abdomen is soft. Tenderness: There is no abdominal tenderness. There is no guarding or rebound. Musculoskeletal: General: No swelling. Normal range of motion. Right lower leg: No edema. Left lower leg: No edema. Neurological: Mental Status: She is alert and oriented to person, place, and time. Skin: General: Skin is warm and dry. Psychiatric: Mood and Affect: Mood normal. Behavior: Behavior normal. Vitals and nursing note reviewed. Exam conducted with a doctor of nurse anesthesia practice present. Vitals: Estimated body mass index is 34.47 kg/m as calculated from the following: Height as of 04/12/24: 5' 9 . Weight as of this encounter: 233 lb 6.4 oz. BP: 118/70 Patient's last menstrual period was 08/07/2024. ASSESSMENT & PLAN ICD-10-CM 1. Irregular periods/menstrual cycles N92.6 Pt presents with irregular cycles. Pt given labs and ultrasound orders to have obtained. Pt to return as needed. Documented by Colette Sy LPN on behalf of: Candido Loera DO documented in this encounter [facility] Evaluation note 11-23-2022 Note Date & Type Note Facility 11-23-2022 Evaluation note Encounter Date Diagnosis Assessment Notes Nov, Sore throat (ICD-10 - J02.9) Nov, Strep pharyngitis (ICD-10 - J02.0) Strep throat material was printed Drink plenty fluids, get plenty of rest. Take the amoxicillin and prednisone as prescribed until gone. You may stop the prednisone if you are uncomfortable with any side effects. Take Tylenol or Motrin as needed for aches pains or fevers. You may continue to breast-feed. Follow-up with your family physician if no improvement in 2 to 3 days [employer] Other Evaluation note Note Date & Type Note Facility [facility] note [facility] Evaluation note Note Date & Type Note Facility Evaluation note Diagnosis Irregular periods/menstrual cycles PCOS (polycystic ovarian syndrome) Polycystic ovaries documented in this encounter [facility] Healthcare Summary Purpose Family History No Family History Records Found Relationship Condition Age at Onset Recorded Date/T [place] father Diabetes mellitus Unknown Hypertension Unknown Advance Directives No Advanced Directives Records Found Advance Directive Response Recorded Date/ Time Advance Directives No February 09 10:07am Chief Complaint and Reason for Visit Chief Complaint Sore throat, fever, headaches Additional Source Comments INFORMATION SOURCE (unrecogn ized section and content) DATE CREATED AUTHOR 08/07/2022 [facility] DATE CREATED AUTHOR AUTHOR'S ORGANCHRISSY ATION 08/20/2024 [facility] EPIC REASON FOR VISIT (unrecogniz ed section and content) Reason Comments Menstrual Problem Care Teams (unrecognized sec tion and content) Team Status: Active Member Role Status Dates PHYSICIAN NO FAMILY Primary Care Provider Active Team Status: Inactive Member Role Status Dates PHYSICIAN NO FAMILY Primary Care Provider Active Start: February 10, 2024 End: February 10, 2024 Kayla Bustillos APRN Attending Provider Active Start: February 10, 2024 End: February 10, 2024 [employer] Relationship Specialty Start Date End Date Juanpablo Mariscal MD [address] [facility] [address] [place] [address] PCP - General Family Medicine 03/11/23 [employer] Relationship Specialty Start Date End Date Juanpablo Mariscal MD [address] [facility] [address] [place] [address] PCP - General Family Medicine 03/11/23 [employer] Relationship Specialty Start Date End Date Juanpablo Mariscal MD [address] [facility] [address] [place] [address] PCP - General Family Medicine 03/11/23 Goals (unrecognized section and content) Goals may be documented in a n alternate section FOR RECORDS PERTAINING TO PATIENTS WHO ARE OR HAVE BEEN ENROLLED IN A CHEMICAL DEPENDENCY/SUBSTANCEABUSE PROGRAM, SOME INFORMATION MAY BE OMITTED. This clinical summary was aggregated from multiple sources. Caution should be exercised in using it in the provision of clinical care. This summary normalizes information from multiple sources, and as a consequence, information in this document may materially change the coding, format and clinical context of patient data. In addition, data may be omitted in some cases. CLINICAL DECISIONS SHOULD BE BASED ON THE PRIMARY CLINICAL RECORDS. [employer] provides no warranty or guarantee of the accuracy or completeness of information in this document.
== END 2024-08-23 14:51 | disposition home or self-care (01) ==
LOC: US 14:50
PROVIDERS: PCP Family Medicine; Visit Provider Obstetrics & Gynecology
DX: E28.2 Polycystic ovarian syndrome (principal)
CPT/HCPCS: 76830; 76856

== ENCOUNTER 2025-04-19 12:22 | Outpatient (REF) | payer OTHER, SELFPAY ==
[2025-04-21 11:09] LABS: Age Gdln ACOG Testing Note (.); IGP, rfx Aptima HPV ASCU Note (.)
== END 2025-04-19 12:23 | disposition home or self-care (01) ==
LOC: LAB 12:22
PROVIDERS: PCP Family Medicine; Visit Provider Obstetrics & Gynecology
DX: Z01.419 Encounter for gynecological examination (general) (routine) without abnormal findings (principal)
CPT/HCPCS: 88175